=== PATIENT | female | born 1970 | race Caucasian/White ===

== ENCOUNTER 2019-12-24 09:48 | Inpatient (IN) | payer SELFPAY ==
[2019-12-24] MEDS ORDERED: Succinylcholine Chloride 20 MG/ML 10 ml SYRINGE FS ONE (09:59)
[2019-12-24] MEDS ORDERED: Rocuronium Bromide 10 MG/ML (10ML VIAL) ONE ×2 (10:00→10:03)
[2019-12-24] MEDS ORDERED: Midazolam HCl 2 mg/2 ml Vial ONE (10:13)
[2019-12-24 10:36] LABS: ALT (SGPT) 31 U/L (8-55); AST (SGOT) 35 U/L (5-34); Albumin 3.6 g/dL (3.5-5.0); Alkaline Phosphatase 117 U/L (40-110); BUN (Urea Nitrogen) 46 mg/dL (7.0-18.7); Bilirubin, Total 0.3 mg/dL (0.2-1.2); Calc. Creatinine Clearance 0 mL/min (70-130); Calcium 7.3 mg/dL (7.8-10.44); Chloride 102 mmol/L (98-107); Estimated GFR-MDRD 29; Globulin 2.9 g/dL (2.4-3.5); Protein, Total 6.5 g/dL (6.0-8.3); Sodium 128 mmol/L (136-145)
[2019-12-24 10:40] LABS: INR-International Normal Ratio 1.3; PTT 42.7 sec (22.9-36.1); Prothrombin Time 16.2 sec (12.0-14.7)
--- NOTE | 2019-12-24 10:40 | CT ---
CT BRAIN WITHOUT CONTRAST: HISTORY: Headache, shortness of breath FINDINGS: No evidence of acute infarct, hemorrhage, midline shift or abnormal extra-axial fluid collections is seen. The ventricular size is appropriate and the basilar cisterns are patent. The bony calvarium is intact. There is mucosal disease in the paranasal sinuses. IMPRESSION: No CT evidence of acute intracranial process.
[2019-12-24 10:45] LABS: Carbon Dioxide Less than 8 mmol/L (22-29); Glucose 723 mg/dL (70-105)
[2019-12-24] MEDS ORDERED: Fentanyl 100 MCG/2 ML VIAL ONE (10:51)
[2019-12-24 10:54] LABS: Actual Bicarbonate (HCO3a) 2.3 mEq/L (22-28); Analyzer IN Cardio ER; Calcium, Ionized (arterial) 1.27 mmol/L (1.12-1.30); Carboxyhemoglobin (COHb) 0.2 gm% (0.0-3.0); Hemoglobin (Hb) 13.9 g/dL (12.0-16.0); O2 Tension (PaO2), arterial 365.3 mmHg (80.0-100.0); Potassium - ABG Lab 5.01 mmol/L (3.70-5.30)
[2019-12-24 10:55] LABS: Band 6 % (5-11); Hemoglobin 13.7 g/dL (12.0-16.0); Lymphocytes 7 % (21-51); MDiff Complete? YES; Mean Corpuscular HGB CONC 32.2 g/dL (32.0-36.0); Mean Corpuscular Hemoglobin 32.1 pg (27.0-31.0); Mean Corpuscular Volume 99.7 fL (78.0-98.0); Mean Platelet Volume 8.6 fL (7.4-10.4); Metamyelocyte 2 % (0-0); Monocytes 9 % (0-10); Neutrophil 76 % (42-75); Platelet Count 225 thou/uL (130-400); Platelet Morphology Comment Appears Adequate; RBC Distribution Width 11.7 % (11.5-14.5); RBC Morphology Normal; Red Blood Cell (RBC) Count 4.27 mill/uL (4.20-5.40)
[2019-12-24] MEDS ORDERED: Sodium Bicarb 50 MEQ/50 ML Abboject 8.4% SYRINGE ONE (10:58)
[2019-12-24 11:00] LABS: Base Excess (BEa) -35.9 mEq/L (-2.0 to +3.0); CO2 Tension 24.2 mmHg (35.0-45.0); Puncture Site LRA
[2019-12-24] MEDS ORDERED: fentaNYL Citrate/PF 2,000 MCG in Sodium Chloride 0.9% 60 ML IV SCH ×2 (11:00→16:00)
[2019-12-24] MEDS ORDERED: INSULIN REGULAR IN 0.9 % NACL 100 UNIT/100 ML BAG ONE ×2 (11:05→11:09)
[2019-12-24] MEDS ORDERED: Insulin Regular 300 UNITS/3 ML VIAL ONE (11:07)
[2019-12-24 11:17] LABS: Bilirubin Negative (Negative); Blood, Urine 3+ (Negative); Clarity Turbid (Clear); Glucose, Urine (Dipstick) Greater than 1000 mg/dL (Negative); Ketone, Urine 80 mg/dL (Negative); Leukocyte Negative Leu/uL (Negative); Nitrite Negative (Negative); Protein, Urine (Dipstick) 100 mg/dL (Neg-Trace); RBC/HPF 0-3 HPF (0-3); Specific Gravity, Urine 1.015 (1.002-1.036); Squamous Epithelial 0-3 HPF (0-3); Urobilinogen Normal mg/dL (Less than 2); pH, Urine 5.5 (5.0-9.0)
[2019-12-24] MEDS ORDERED: Norepinephrine 8 MG/0.9% NS 250 ML ONE (11:27)
[2019-12-24 11:30] LABS: Bacteria/HPF Rare-Few HPF (None Seen)
--- NOTE | 2019-12-24 11:35 | RAD ---
CHEST 1 VIEW: Date: 12/24/2019 HISTORY: Shortness of breath. COMPARISON: None. FINDINGS: Endotracheal tube tip above the woody 5.0 cm. Enteric tube tip below the diaphragm, though out of fi eld of view. Lungs are clear. No pneumothorax. No effusion. No acute osseous abnormality. IMPRESSION: Satisfactory location of the enteric and endotracheal tubes. POS: [facility]
[2019-12-24 11:45] LABS: Actual Bicarbonate (HCO3a) 4.6 mEq/L (22-28); Analyzer IN Cardio ER; Base Excess (BEa) -26.1 mEq/L (-2.0 to +3.0); Calcium, Ionized (arterial) 1.13 mmol/L (1.12-1.30); Carboxyhemoglobin (COHb) 0.3 gm% (0.0-3.0); Hemoglobin (Hb) 12.4 g/dL (12.0-16.0); O2 Tension (PaO2), arterial 348.1 mmHg (80.0-100.0); Potassium - ABG Lab 4.14 mmol/L (3.70-5.30)
[2019-12-24 11:59] LABS: CO2 Tension 21.4 mmHg (35.0-45.0); pH, Arterial 6.95 (7.35-7.45)
[2019-12-24 12:00] LABS: Puncture Site LRA
--- NOTE | 2019-12-24 12:00 | RAD ---
Chest AP view INDICATION: Central line check COMPARISON: December 24, 2019 10:40 AM FINDINGS: Lungs: The lungs are clear Cardiac silhouette: The cardiomediastinal silhouette appears within normal limits. Pulmonary vasculature: Normal Pleural spaces: No pleural effusion or pneumothorax is demonstrated. Upper abdomen: No abnormality seen. Osseous structures: No acute osseous abnormality. Additional findings: There is a new right IJ central venous catheter projecting the region of the SV C. ET tube tip and gastric catheter unchanged. No definite pneumothorax is evident. There is a skinfold overlying the upper torso. IMPRESSION: New right IJ central venous catheter projects in the region of the SVC.
[2019-12-24 12:07] LABS: Analyzer IN Cardio ER; Base Excess -26.9 mEq/L (-2.0 to +3.0); Chloride (VBG) 105 mmol/L (98-106); Hemoglobin (Hb) 12.4 g/dL (11.7-16.0); Potassium (VBG) 4.15 mmol/L (3.70-5.30); Sodium 135.5 mmol/L (133-146)
[2019-12-24 12:08] LABS: Actual Bicarbonate (HCO3v) 5 mEq/L (22-28)
[2019-12-24] MEDS ORDERED: cefTRIAXone\\ROCEPHIN 1 GM VIAL ONE (12:25)
[2019-12-24] MEDS ORDERED: Sodium Bicarb 50 MEQ/50 ML VIAL ONE ×2 (12:25→15:30)
[2019-12-24 12:40] LABS: SARS-CoV-2 NAA Rapid Test Not Detected (NotDetected)
[2019-12-24] MEDS ORDERED: Norepinephrine 8 MG/0.9% NS 250 ML IVPB PRN (12:54)
[2019-12-24] MEDS ORDERED: Electrolyte Replacement Protoc 1 EACH EACH IVPB ONE ×2 (12:54→12:55)
[2019-12-24] MEDS ORDERED: Dextrose 5 %-0.45 % NaCl 1,000 ML IV PRN (12:55)
[2019-12-24] MEDS ORDERED: NS 0.9% w/ 20 MEQ KCL 1,000 ML IV PRN ×2 (12:55)
[2019-12-24] MEDS ORDERED: Sodium Chloride 0.9% 1,000 ML IV PRN ×4 (12:55)
[2019-12-24] MEDS ORDERED: D5 1/2 NS w/20 mEq KCL 1,000 ML IV PRN (12:55)
[2019-12-24] MEDS ORDERED: HUMULIN R 100 UNITS in Sodium Chloride 0.9% 100 ML IVPB SCH (13:00)
[2019-12-24] MEDS ORDERED: Sodium Chloride 0.45% 1,000 ML IV SCH ×2 (13:00→14:15)
[2019-12-24] MEDS ORDERED: Ventilator Sedation Protocol 1 EACH FS SCH (13:00)
[2019-12-24] MEDS ORDERED: Lorazepam 2 MG/ML VIAL ONE (13:20)
[2019-12-24] MEDS ORDERED: Piperacillin/Tazobactam 3.375 GM VIAL ONE (13:43)
[2019-12-24] MEDS ORDERED: Vancomycin HCl 1.5 GM in Sodium Chloride 0.9% 250 ML 300 ML IVPB SCH (13:45)
[2019-12-24] MEDS ORDERED: Vancomycin 1.5 GRAM/300 ML BAG 1.5 GM in Premix Bag 1 BAG IVPB SCH (13:45)
[2019-12-24] MEDS ORDERED: Sodium Chloride 0.9% 1,000 ML IV SCH (13:45)
[2019-12-24 13:59] LABS: Actual Bicarbonate (HCO3a) 4.2 mEq/L (22-28); Analyzer IN Cardio ER; Calcium, Ionized (arterial) 1.14 mmol/L (1.12-1.30); Carboxyhemoglobin (COHb) 0.3 gm% (0.0-3.0); Hemoglobin (Hb) 12.9 g/dL (12.0-16.0); O2 Tension (PaO2), arterial 207.1 mmHg (80.0-100.0); Potassium - ABG Lab 3.53 mmol/L (3.70-5.30)
[2019-12-24 14:04] LABS: Hemoglobin 13.2 g/dL (12.0-16.0); Mean Corpuscular Hemoglobin 32.4 pg (27.0-31.0); Mean Corpuscular Volume 95.3 fL (78.0-98.0); Mean Platelet Volume 8.7 fL (7.4-10.4); Platelet Count 186 thou/uL (130-400); RBC Distribution Width 11.8 % (11.5-14.5); Red Blood Cell (RBC) Count 4.06 mill/uL (4.20-5.40); White Blood Cell (WBC) Count 25.8 thou/uL (4.8-10.8)
[2019-12-24 14:04] LABS: BUN (Urea Nitrogen) 49 mg/dL (7.0-18.7); Calc. Creatinine Clearance 0 mL/min (70-130); Calcium 6.8 mg/dL (7.8-10.44); Chloride 109 mmol/L (98-107); Estimated GFR-MDRD 37; Glucose 542 mg/dL (70-105); Potassium 3.7 mmol/L (3.5-5.1); Sodium 138 mmol/L (136-145)
[2019-12-24 14:05] LABS: CO2 Tension 20.6 mmHg (35.0-45.0); Puncture Site LRA; pH, Arterial 6.93 (7.35-7.45)
[2019-12-24 14:05] LABS: Magnesium 1.8 mg/dL (1.6-2.6); Phosphorus 3.8 mg/dL (2.3-4.7)
[2019-12-24 14:09] LABS: Carbon Dioxide Less than 8 mmol/L (22-29)
[2019-12-24 14:18] LABS: Band 19 % (5-11); Lymphocytes 8 % (21-51); MDiff Complete? YES; Metamyelocyte 2 % (0-0); Myelocyte 1 % (0-0); Neutrophil 70 % (42-75); Platelet Morphology Comment Appears Adequate; RBC Morphology Normal
[2019-12-24] MEDS ORDERED: Sodium Bicarbonate 75 MEQ in Sodium Chloride 0.45% 1,000 ML IV SCH (15:00)
[2019-12-24] MEDS ORDERED: Electrolyte Replacement Protocol FS PRN (15:45)
--- NOTE | 2019-12-24 15:53 | CON ---
DATE OF CONSULTATION: 12/24/2019 SERVICE: Nephrology. REASON FOR CONSULTATION: Acute kidney injury and severe metabolic acidosis. REQUESTING PHYSICIAN: Dr. Crzu. CHIEF COMPLAINT: Mental status change and respiratory failure. HISTORY OF PRESENT ILLNESS: History was unable to be obtained as the patient is currently intubated. She reportedly was brought in in agonal respiration with mottling of the skin and hypotensive. The patient was resuscitated with IV fluid and was subsequently intubated. The patient initially on presentation, had unequal pupils concerning for acute brain bleed, but CT scan of the brain obtained was not consistent. Further evaluation revealed severe metabolic acidosis, hypotension, hypothermia, and hyperglycemia suggestive of diabetic ketoacidosis. The patient was intubated, started on Tessa Hugger, IV fluid as well as pressure support. She also received 3 amps of bicarb, but subsequent arterial blood gas still showed severe metabolic acidosis with pH of 6.9, hence Nephrology consulted. Attempt at reaching the patient's relative by name, Steve Ledbetter, was unsuccessful as phone went into voicemail and I could not leave message as voice message was full. PAST MEDICAL HISTORY: Obtained by review of medical record showed the following; diabetes mellitus, osteoarthritis, and unknown musculoskeletal disorder. PAST SURGICAL HISTORY: Showed cholecystectomy. FAMILY HISTORY: Reportedly significant for vulvar cancer in mother. SOCIAL HISTORY: Reportedly lives with family. She is a current everyday smoker, smoking about 1 pack per week. Drinks alcohol occasionally. There is no history of recreational drug use. ALLERGIES: NO KNOWN DRUG ALLERGIES REPORTED. PRIOR TO HOSPITAL MEDICATIONS: Unknown at this point. REVIEW OF SYSTEMS: Could not be obtained due to the patient's condition. PHYSICAL EXAMINATION: VITAL SIGNS: Initial vitals on presentation showed blood pressure of 99/65 with pulse of 86, respiratory rate of 22, SpO2 of 98 with bag mask ventilation. Most recent vitals showed blood pressure 95/53, pulse 64, respiratory rate 24, temperature 96.8, SpO2 of 100% on the ventilator. GENERAL: Middle-age female, intubated and sedated. HEENT: Normocephalic, atraumatic. ET tube is in place. NECK: Supple with no obvious JVD. CARDIOVASCULAR: Regular rhythm and rate, but tachycardic. No murmur was appreciated. RESPIRATORY: Ventilator transmitted breath sounds heard in all lung zones. GI: Abdomen is flat, soft, with hypoactive bowel sounds. UROGENITAL: Michelle catheter is in place draining some urine. EXTREMITIES: Grossly normal looking, atraumatic with no obvious edema or erythema. Initially observed mottling has resolved. DIRECTOR OF PERSONNEL: The patient is sedated. DIAGNOSTIC DATA: CBC on presentation showed WBC count of 36, hemoglobin of 13.7, MCV of 99.7, platelets of 225. Initial chemistry on presentation showed sodium 128, potassium 5.0, chloride 102, CO2 less than 8, BUN 46, creatinine 1.82, glucose 723, calcium 7.3, bilirubin 0.3, AST 35, ALT 31, alkaline phosphatase 117, total protein 6.5, albumin 3.6. Repeat BMP 3-1/2 hours later showed sodium 138, potassium 3.7, chloride 109, CO2 less than 8, BUN 49, creatinine 1.5, glucose 542, calcium 6.8. Initial blood gas on presentation showed a pH of 6.6, pCO2 of 24.2, and pO2 of 365. Most recent blood gas performed at 1355 hours, showed pH of 6.9, pCO2 of 20.6, pO2 of 207, ionized calcium of 1.14. Urinalysis showed yellow turbid urine with pH of 5.5, specific gravity of 1.015, positive protein, positive glucose greater than 1000, positive ketone, 3+ blood, negative nitrite, bilirubin, and leukocyte esterase. Microscopy showed 0 to 3 rbc's and 4 to 6 wbc's with 2+ amorphous crystals. Serology showed negative SARS-CoV-[address] scan of the brain showed no acute evidence of intracranial process. Chest x-ray showed clear lungs with no pneumothorax, effusion, or acute osseous process. ASSESSMENT: Severe metabolic acidosis with pH of 6.6: Most likely due to diabetic ketoacidosis. Substance abuse or ingestion as well as occult infection cannot be ruled out. DEVEN: Most likely due floyd hemodynamic factors related to shock Acute respiratory failure: Most likely due to respiratory muscle weakness related to severe respiratory compensation of metabolic acidosis. Diabetic ketoacidosis: Precipitating factor is unknown. Occult infection is a concern. Circulatory shock: Due to volume depletion and or sepsis PLAN: We will give ns 1 liter bolus due to hypotension. Continue levophed. Willalso give 2 amps on sodium bicarbonate stat. We will substitute normal saline with half-normal saline with 75 mEq of sodium bicarbonate and run them at 250 mL/h. We will also continue insulin infusion as per DKA protocol. We will recheck an arterial blood gas in 2 hours. We will monitor blood sugar hourly. We will transition to either D5 normal saline or D5 with sodium bicarbonate depending on the level of acidosis once blood sugar is around 250. We will monitor electrolytes and replete as indicated. We will also get LDH, ESR, and CRP as well as urine drug screen, serum alcohol, salicylate and acetaminophen. Further treatment to follow depending on hospital course. The patient is critically ill with guarded prognosis. critical care time was more than 50 minutes. Job ID: [id number] [facility]
[2019-12-24] MEDS ORDERED: Fentanyl BOLUS 250 ML IVPB PRN (16:00)
[2019-12-24] MEDS ORDERED: Potassium Chloride 20 MEQ in Premix Bag 1 BAG IVPB SCH (16:00)
[2019-12-24] MEDS ORDERED: Lorazepam 2 MG/ML VIAL SLOW IVP PRN (16:00)
[2019-12-24] MEDS ORDERED: Morphine 2 MG/ML VIAL SLOW IVP PRN (16:00)
[2019-12-24] MEDS ORDERED: Propofol BOLUS 1,000 MG/100 ML VIAL IV PRN (16:00)
[2019-12-24] MEDS ORDERED: DISCONTINUE PREVIOUS NARCOTIC PAIN MEDICATIONS AND BENZODIAZEPINES FS SCH (16:00)
[2019-12-24] MEDS ORDERED: Propofol 1,000 MG/100 ML VIAL IV PRN (16:00)
[2019-12-24 16:05] LABS: Acetaminophen Less than 6.0 mcg/mL (10.0-30.0); Alcohol Less than 10 mg/dL (Less than 10); Salicylate Less than 8.0 mg/dL (15.0-30.0)
[2019-12-24 16:05] LABS: Amphetamine Not Detected (NotDetected); Barbiturates Screen Not Detected (NotDetected); Benzodiazepine Screen Not Detected (NotDetected); Cocaine Metabolite Screen Not Detected (NotDetected); Medtox Control Line Valid? VALID (VALID); Medtox Reader # READER 1; Methadone Not Detected (NotDetected); Methamphetamine Not Detected (NotDetected); Opiate Screen Not Detected (NotDetected); Oxycodone Screen Not Detected (NotDetected); Phencyclidine (PCP) Not Detected (NotDetected); THC/Cannabinoid Screen Not Detected (NotDetected); Tricyclic Screen Not Detected (NotDetected)
[2019-12-24] MEDS ORDERED: [UNRECOGNIZED DRUG - REMARK] FS SCH (16:30)
[2019-12-24 17:34] LABS: Actual Bicarbonate (HCO3a) 5.9 mEq/L (22-28); Analyzer IN Cardio ER; Base Excess (BEa) -21.2 mEq/L (-2.0 to +3.0); Calcium, Ionized (arterial) 1.06 mmol/L (1.12-1.30); Carboxyhemoglobin (COHb) 0.3 gm% (0.0-3.0); O2 Tension (PaO2), arterial 200.6 mmHg (80.0-100.0); Potassium - ABG Lab 3.68 mmol/L (3.70-5.30)
[2019-12-24 17:36] LABS: pH, Arterial 7.14 (7.35-7.45)
[2019-12-24 17:37] LABS: ALV-art Gradient 62.225 mmHg (0-20); CO2 Tension 17.9 mmHg (35.0-45.0); Puncture Site LRA
[2019-12-24] MEDS ORDERED: Piperacillin/Tazobactam 3.375 GM in Sodium Chloride 0.9% 100 ML IVPB SCH (18:00)
[2019-12-24 18:10] LABS: BUN (Urea Nitrogen) 38 mg/dL (7.0-18.7); Calc. Creatinine Clearance 0 mL/min (70-130); Calcium 6.5 mg/dL (7.8-10.44); Chloride 114 mmol/L (98-107); Estimated GFR-MDRD 41; Potassium 4.1 mmol/L (3.5-5.1); Sodium 141 mmol/L (136-145)
[2019-12-24 18:20] LABS: Carbon Dioxide Less than 8 mmol/L (22-29); Glucose 647 mg/dL (70-105)
--- NOTE | 2019-12-24 18:56 | HP ---
CHIEF COMPLAINT: Altered mental status. HISTORY OF PRESENT ILLNESS: The patient is a 49-year-old female, who was brought in by EMS for change in mental status. Per the ER physician, the patient's family found the patient passed out in the car. At this time, EMS was called. EMS noted the patient had apneic breathing. The patient was ventilated and at this time, she was brought into our ER. She was initially noted to have some pupil asymmetry. CT head was negative for any bleeds. Given her respiratory status, she was intubated. She was noted to have DKA with severe acidosis. PAST MEDICAL HISTORY: Per previous records indicate osteoarthritis. PAST SURGICAL HISTORY: She has had cholecystectomy. SOCIAL HISTORY: She states that she drinks socially. No drug use. Possible use of tobacco. FAMILY HISTORY: History of maternal malignancy. Mother had vulvar cancer. REVIEW OF SYSTEMS: Unable to obtain. PHYSICAL EXAMINATION: VITAL SIGNS: Temperature of 97.3, heart rate 119, blood pressure 114/72, and O2 saturations 100% ventilation. The patient is intubated. HEENT: Pupils are equal, reactive to light. CV: S1 and S2 present. Tachycardic. ABDOMEN: Soft. Bowel sounds are present x2. EXTREMITIES: No edema present. Pedal pulses are not palpable. NEUROLOGIC: Neurovascular long, again she is intubated and sedated, unable to obtain. LABORATORY RESULTS: As of the following; WBCs of 36.0, hemoglobin of 13.7, hematocrit of 42.6, and platelets of 225. Her initial blood gas was pH of 6.60 with a pCO2 of 24.2 with a pO2 of 365. Chemistry; sodium of 138, potassium of 3.7, BUN of 49, creatinine 1.50 with a glucose of 542 and initially was 720. She did have a CT head, which did not show any abnormalities. She did have a chest x-ray, which just indicated a central line. ASSESSMENT AND PLAN: The patient is a very nice 49-year-old female presents to the hospital with change in mental status. 1. Acute respiratory failure. The patient currently is intubated. We will continue to monitor. Pulmonology has been consulted. The patient will go to the ICU. 2. Acute metabolic encephalopathy, most likely secondary to acidosis and diabetic ketoacidosis. We will continue to monitor. 3. Diabetic ketoacidosis. We will start her on insulin drip. She has received 4 L of normal saline bolus. She is currently on Levophed drip for hypotension. We will also start her on broad-spectrum antibiotics and we will also start on a bicarb drip. 4. Septic shock. Again, this is unclear. It could be just from diabetic ketoacidosis. We will start her on antibiotics. Blood cultures have been done. We will continue to monitor her carefully. Her COVID test was negative. 5. Acute kidney injury and anion gap metabolic acidosis most likely from ketosis. We will get Nephrology to help assist with this. She is on a bicarb drip. We will continue to check her pH and her labs every 2 to 4 hours. 6. Leukocytosis most likely secondary to her underlying disease either acidosis or underlying infection. Again, we will continue antibiotics. 7. Deep venous thrombosis prophylaxis. We will put the patient on subcu Lovenox. Job ID: [id number]
--- NOTE | 2019-12-24 21:32 | CON ---
DATE OF CONSULTATION: HISTORY OF PRESENT ILLNESS: Jennifer Barnes is a 49-year-old female, intubated, on the vent, sedated. Unfortunate situation. She came to the ER, encephalopathic, agonal respiration, severe metabolic acidosis. She apparently has a history of what appears to be uncontrolled diabetes. We are not able to get additional information. It appears she does have a history of past diabetes. History of unknown musculoskeletal problem, arthritis. PREVIOUS SURGERIES: Otherwise included a hysterectomy. SOCIAL HISTORY: Apparently, she smokes. As per the previous records, social drinking. MEDICATIONS: At this time, unknown home medication, in the process of contacting family members. She is on a Levophed drip in the ER with a blood pressure 100/60. She is on insulin protocol, IV fluids. She has been seen by Nephrology who is writing all the IV fluid management. PHYSICAL EXAMINATION: HEENT: Pupils are equal. CHEST: Decreased breath sounds, no wheezing. CARDIAC: Normal S1, S2. No gallops. ABDOMEN: Soft. IMAGING: X-ray was clear. CT of the head was negative. LABORATORY DATA: Shows multiple abnormalities. Blood sugar 43. C-reactive protein is 6.5. [place] [address], H and H are 13 and 38, platelet count is normal. PO2 was 207, pCO2 of 27, 6.3, rate of 28, 40%, 450 tidal volume, PEEP of 5. Bicarb was 8. She is on a bicarb drip. She has already had 5 amps of bicarb. Drug screen was negative. Coronavirus test was negative. IMPRESSION: Uncontrolled diabetes, severe metabolic acidosis. Leukocytosis with left shift, possibly sepsis. PLAN: 1. IV fluids as per the insulin diabetic protocol. 2. Continue bicarb drip. 3. Continue vent support. We will wean when stable. 4. Discussed with family as they arrive. 5. Plan all supportive care. Serial exam. This is a 45-minute critical care time. Job ID: [id number]
[2019-12-25] MEDS ORDERED: Vancomycin 1 GM in Premix Bag 1 BAG IVPB SCH (02:00)
[2019-12-25] MEDS ORDERED: Magnesium 2 GM/50 ML 2 GM in Premix Bag 1 BAG IVPB SCH (06:15)
[2019-12-25] MEDS ORDERED: Enoxaparin Sodium 40 MG/0.4 ML SYRINGE SC SCH (09:00)
[2019-12-25] MEDS ORDERED: Famotidine/PF 20 mg/2ml Vial SLOW IVP SCH (09:00)
--- NOTE | 2019-12-28 16:29 | EKG ---
Test Reason : UNRESP Blood Pressure : / mmHG Vent. Rate : 078 BPM Atrial Rate : 078 BPM P-R Int : 194 ms QRS Dur : 102 ms QT Int : 438 ms P-R-T Axes : 074 048 043 degrees QTc Int : 499 ms Normal sinus rhythm Prolonged QT Abnormal ECG Confirmed by RUBEN AVILES DO ([id number]), editor greeting card OTILIO ARELLANO ([id number]) on 12/28/2019 4:28:47 PM Referred By: Confirmed By:RUBEN AVILES DO
== END 2019-12-26 09:24 | disposition short-term general hospital (02) | DRG 871 ==
LOC: ERS 09:48 → ERHOLD 12:12
PROVIDERS: ADMIT Internal Medicine; ATTEND Internal Medicine
PROC: 0BH17EZ Insertion of Endotracheal Airway into Trachea, Via Natural or Artificial Opening (ICD-10-PCS; principal; 2019-12-24)
PROC: 05HN33Z Insertion of Infusion Device into Left Internal Jugular Vein, Percutaneous Approach (ICD-10-PCS; 2019-12-24)
PROC: 3E033XZ Introduction of Vasopressor into Peripheral Vein, Percutaneous Approach (ICD-10-PCS; 2019-12-24)
PROC: 5A1935Z Respiratory Ventilation, Less than 24 Consecutive Hours (ICD-10-PCS; 2019-12-24)
DX: A41.9 Sepsis, unspecified organism (principal); E11.10 Type 2 diabetes mellitus with ketoacidosis without coma; R65.21 Severe sepsis with septic shock; G93.41 Metabolic encephalopathy; J96.00 Acute respiratory failure, unspecified whether with hypoxia or hypercapnia; N17.9 Acute kidney failure, unspecified; Z20.828 Contact with and (suspected) exposure to other viral communicable diseases; M19.90 Unspecified osteoarthritis, unspecified site; Z90.49 Acquired absence of other specified parts of digestive tract
CPT/HCPCS: 36416; 70450; 71045; 80053; 80306; 80307; 81003; 81015; 82805; 83605; 83615; 83735; 84100; 85025; 85610; 85652; 85730; 86140; 87040; 93005; 94002; J0696; J1815; J2060; J2250; J2543; J3010; J3370; J3480; J3490; U0002